=== PATIENT | female | born 1930 | race Caucasian/White ===

== ENCOUNTER 2017-10-10 12:31 | Outpatient (CLI) | payer MEDICARE, BC ==
--- NOTE | 2017-10-10 15:32 | MRI ---
MRI THORACIC SPINE NONCONTRAST: Date: 10/10/17 HISTORY: 87-year-old female with back pain, thoracic, M54.6. COMPARISON: None. FINDINGS: There is mild chronic anterior wedge compression deformity of T5 vertebral body without bone marrow e lorne. Region of bone marrow signal abnormality in the right posterior T12 vertebral body is consisten t with a hemangioma of bone. Bone marrow signal is otherwise normal. Mild disc space narrowing at jose d e levels. Mild broad based disc-osteophytic bar complexes minimally encroach upon the anterior aspect of the spinal canal at multiple levels. No high grade central spinal canal stenosis, high grade neur al foraminal stenosis, carly nerve root impingement, or cord impingement, at any level. The thoracic spinal cord is normal in size and signal. No major pathology of the perivertebral spaces. IMPRESSION: 1. Multilevel mild degenerative disc changes, not unusual for age. 2. Mild old compression fracture deformity of T5. 3. Otherwise negative. POS: GINA
--- NOTE | 2017-10-10 15:45 | MRI ---
MRI CERVICAL SPINE NONCONTRAST: DATE: 10/10/17. HISTORY: An 87-year-old female with cervicalgia, M54.2. COMPARISON: None. FINDINGS: Cervical spinal cord is normal in size and signal. No major bone marrow signal abnormality identifie d. Vertebral body heights are maintained. C1-2: No high-grade central stenosis. C2-3: Disk space maintained. Mildly thickened ligamentum flavum. No high-grade central spinal rob l stenosis. Small bilateral uncinate process osteophytes. Severe right neural foraminal stenosis du e to severe right degenerative facet changes. Moderate to severe left neural foraminal stenosis due to mild to moderate left degenerative facet changes. C3-4: Mild disk space narrowing. Severe right degenerative fact hypertrophy. Mild left degenerativ e facet changes. Broad-based disk-osteophytic bar complex plus superimposed small focal central disk -osteophyte complex indents the ventral surface of the spinal cord, causing mild to moderate central spinal canal stenosis. Small bilateral uncinate process osteophytes. Extremely severe right neural foraminal stenosis. Moderate left neural foraminal stenosis. C4-5: Ankylosis of the vertebral bodies across the obliterated disk space. Broad-based osteophyte i ndents the ventral aspect of the spinal cord. Mildly thickened ligamentum flavum encroaches upon the posterior aspect of the spinal canal. Overall, moderate to severe central spinal canal stenosis. R ight facet joint is also ankylosed. Left facet joint appears normal. Mild to moderate bilateral sis roforaminal stenosis. C5-6: Moderate disk space narrowing. Prominent broad-based disk-osteophytic bar complex encroaches upon the anterior aspect of the spinal canal, abutting and mildly displacing the spinal cord. Mildly thickened ligamentum flavum. Severe central spinal canal stenosis. Moderate to large bilateral unc inate process osteophytes. Severe bilateral neural foraminal stenosis. Mild to moderate bilateral d egenerative facet changes. C6-7: Broad-based disk-osteophytic bar complex (right side greater than left) encroaches upon the sp inal canal, causing moderate to severe central spinal canal stenosis. Moderate disk space narrowing. Normal bilateral facet joints. Severe bilateral neural foraminal stenosis. C7-T1: Moderate to severe right degenerative facet changes. Severe left degenerative facet changes. These result in a grade I anterolisthesis of C7 on T1. Mild disk space narrowing. Severe right ne ural foraminal stenosis. Moderate to severe left neural foraminal stenosis. Mild to moderate centra l spinal canal stenosis. IMPRESSION: 1. Cervical spondylosis, with multilevel degenerative disk disease and multilevel facet osteoarthros is (the facet osteoarthrosis asymmetrically more severe on the left side). 2. Ankylosis of C4 and C5. 3. Multilevel high-grade central spinal canal stenosis (including severe) and bilateral neural dejan inal stenosis (including severe). POS: GINA
--- NOTE | 2017-10-10 16:07 | MRI ---
MRI LUMBAR SPINE NONCONTRAST: DATE: 10/10/17 HISTORY: 87-year-old female with acute low back pain, M54.5. Bilateral lumbar radiculopathy with bilateral low er extremity weakness. COMPARISON: 01/04/12 FINDINGS: Vertebral body heights are maintained. T12-L1: Disc space maintained. Tiny left paracentral focal disc herniation or disc-osteophyte complex . No central stenosis. No high grade neural foraminal stenosis. L1-2: Conus medullaris terminates at upper L2 level. Disc space maintained. Disc desiccation. Mild di ffuse disc bulge. Mild to moderate bilateral neural foraminal stenosis. No central stenosis. L2-3: Diffuse moderate disc space narrowing. Diffuse disc bulge. Bilateral mild to moderate degenerat anupam facet changes. Bilateral moderate neural foraminal stenosis. The neural foraminal stenosis may be minimally worse than previously, but otherwise no major interval change. L3-4: Disc desiccation. Mild to moderate disc space narrowing. Diffuse disc bulge. Mild to moderate r ight degenerative facet changes. Moderate to severe left degenerative facet changes. Mild to moderate central spinal canal stenosis. Moderate to severe bilateral neural foraminal stenosis. No major inte rval change. L4-5: The previously severe disc space narrowing has become slightly worse. The disc space narrowing is severe on the right side, but the left side of the end plates have fused with each other. This res ults in stabilization of the mild grade I anterolisthesis of L4 on L5. There is at least partial anky losis of the right facet joint and complete ankylosis of the left facet joint. Mild to moderate thick ening of ligamentum flavum and bony hypertrophy of the bilateral facet complexes. Mild stenosis of th e spinal canal and thecal sac. Moderate bilateral neural foraminal stenosis which has not undergone m ajor interval change. L5-S1: What appears to be a right hemilaminectomy defect is noted. The previously moderate disc space narrowing has become severe. Prominent diffuse disc bulge is again noted. There has been interval gr owth of a large anterior bridging osteophyte that protrudes ventrally into the prevertebral space. Th ere is T2 hyperintense signal throughout the L5-S1 disc space, more extensive than on the previous MR I. There is bone marrow edema of the end plates which is more extensive than on the previous MRI. Sev ere right neural foraminal stenosis and moderate to severe left neural foraminal stenosis are similar in degree to the previous MRI. There has been interval partial resection of the central and bilatera l paracentral disc herniation and/or disc bulge that previously protruded into the spinal canal, imp inging on the bilateral S1 nerve roots. There is currently no longer displacement of the S1 nerve yoko ts. No gadolinium IV contrast was given, and therefore, it is difficult to distinguish postsurgical s car tissue from residual disc material. The previously seen high grade central spinal canal stenosis and lateral recess stenosis have been relieved. There is currently no high grade central stenosis. Th ere is a small focal T2 and T1 hypointense lesion in the anterior epidural space to the right of midl ine, which is either an inferiorly extruded small disc herniation or postsurgical scar tissue. It abu ts the medial aspect of the right S1 nerve root but does not displace it. Bilateral moderate degenera tive facet changes. IMPRESSION: 1. Lumbar spondylosis, with multilevel degenerative disc disease and multilevel facet osteoarthr osis. 2. Interval worsening of the now severe degenerative disc disease at L5-S1. 3. Interval worsening of bone marrow edema, and worsening of the signal abnormality in the disc space, at L5-S1. This could represent worsening of Modic type I changes and extensive annular tears, respectively. However, there is a possibility that this could represent discitis/osteomyelitis. 4. Status post right hemilaminectomy at L5-S1, relieving the previously demonstrated high grade central spinal canal stenosis and nerve root impingement. 5. Multilevel high grade bilateral neural foraminal stenosis. MARINA Agustin POS: GINA
== END 2017-10-10 12:32 | disposition home or self-care (01) ==
LOC: MRI 12:31
PROVIDERS: ATTEND Neurological Surgery
DX: M54.2 Cervicalgia (principal); M54.5 Low back pain; M54.6 Pain in thoracic spine; M47.896 Other spondylosis, lumbar region; M99.83 Other biomechanical lesions of lumbar region; M51.37 Other intervertebral disc degeneration, lumbosacral region; M47.892 Other spondylosis, cervical region; M43.22 Fusion of spine, cervical region; M48.02 Spinal stenosis, cervical region; M99.81 Other biomechanical lesions of cervical region; Z87.311 Personal history of (healed) other pathological fracture; Z98.890 Other specified postprocedural states
CPT/HCPCS: 72141; 72146; 72148